=== PATIENT | female | born 1950 | race Caucasian/White ===

== ENCOUNTER 2020-02-07 16:35 | Emergency (ER) | payer OTHER ==
[~2020-02-07] VITALS: Ht 172.7 cm; Wt 99.8 kg
[2020-02-07] MEDS ORDERED: PROAIR HFA8.5 GM INH (16:46)
[2020-02-07] MEDS ORDERED: NORVASC 2.5 MG2.5 M1 PO (16:48)
[2020-02-07] MEDS ORDERED: CARVEDILOL25 MG PO (16:48)
[2020-02-07] MEDS ORDERED: OMEPRAZOLE 20 M20 M1 PO (16:48)
[2020-02-07] MEDS ORDERED: LOVASTATIN 20 M20 MG PO (16:48)
[2020-02-07] MEDS ORDERED: LISINOPRIL2.5 MG PO (16:49)
[2020-02-07] MEDS ORDERED: FUROSEMIDE 20 M20 MG PO (16:49)
[2020-02-07] MEDS ORDERED: FLONASE 0.05%50 MCG NARES (16:49)
[2020-02-07] MEDS ORDERED: ESCITALOPRA5 MG/5 ML PO (16:50)
[2020-02-07 17:14] LABS: HEMATOCRIT 42.5 % (37.0-47.0); HEMOGLOBIN 14.2 gm/dL (12.0-15.0); MCH 29.6 pg (26.0-34.0); MCHC 33.4 g/dL (28.0-37.0); MCV 88.6 fL (80.0-100.0); MPV 7.9 fl. (7.2-11.1); NUCLEATED RBCS 0 /100WBC; PLATELET COUNT* 245 thou/uL (150-400); RDW-CV 12.7 % (10.5-14.5); WBC 7.7 thou/uL (4.0-11.0)
[2020-02-07 17:24] LABS: CALCIUM 9.5 mg/dL (8.5-10.1); CREATININE 1.8 mg/dL (0.6-1.3); POTASSIUM 5.1 mmol/L (3.5-5.1)
[2020-02-07 17:35] LABS: ALBUMIN 3.8 g/dL (3.4-5.0); TOTAL BILIRUBIN 0.3 mg/dL (<0.1-1.0)
[2020-02-07 17:48] LABS: URINE BILIRUBIN NEGATIVE (Negative); URINE BLOOD NEGATIVE (Negative); URINE CLARITY CLEAR; URINE COLOR YELLOW; URINE GLUCOSE-RANDOM NEGATIVE (Negative); URINE KETONES NEGATIVE (Negative); URINE LEUKOCYTES-REFLEX NEGATIVE (Negative); URINE NITRITE-REFLEX NEGATIVE (Negative); URINE PROTEIN NEGATIVE (Negative); URINE UROBILINOGEN 0.2 E.U./dl (0.2-1.0)
[2020-02-07] MEDS ORDERED: VENTOLIN HFA 1818 GM INH (18:04)
[2020-02-07] MEDS ORDERED: ZPAK PO (18:04)
[2020-02-07] MEDS ORDERED: MEDROLDOSEPACK PO (18:04)
[2020-02-07] MEDS ORDERED: NORCO 5-325 TA1 EAC1 PO (18:04)
[2020-02-07 18:05] LABS: ABSOLUTE EOSINOPHILS 1.3 thou/uL (0.0-0.7); ABSOLUTE LYMPHOCYTES 2.5 thou/uL (0.8-5.3); ABSOLUTE MONOCYTES 0.7 thou/uL (0.0-1.2); ABSOLUTE NEUTROPHILS 3.2 thou/uL (1.6-8.1); PLATELET ESTIMATE ADEQUATE
[2020-02-07 18:57] VITALS: BP 135/77
--- NOTE | 2020-02-08 08:47 | EKG ---
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 02/08/20 0845 10 10 Elder Matias MD, FACC /EPI
== END 2020-02-07 18:58 | disposition home or self-care (01) ==
LOC: M.ERS 16:35
PROVIDERS: Nurse Practitioner Family
DX: J45.901 Unspecified asthma with (acute) exacerbation (principal); N28.9 Disorder of kidney and ureter, unspecified; M54.42 Lumbago with sciatica, left side; I10 Essential (primary) hypertension; K21.9 Gastro-esophageal reflux disease without esophagitis; Z88.0 Allergy status to penicillin; Z88.1 Allergy status to other antibiotic agents; Z88.2 Allergy status to sulfonamides